=== PATIENT | male | born 1985 | race Caucasian/White ===

== ENCOUNTER → 2023-07-10 | Outpatient (REF) | payer OTHER, SELFPAY | LOC: DHSLP | PROVIDERS: ATTENDING PHYSICIAN Internal Medicine; FAMILY PHYSICIAN Family Medicine | DX: G47.30 Sleep apnea, unspecified (principal); R06.83 Snoring; R40.0 Somnolence | CPT/HCPCS: 95800 ==

== ENCOUNTER 2023-08-27 15:20 | Emergency (ER) | payer OTHER, SELFPAY ==
[2023-08-27 15:22] VITALS: BP 159/104
[2023-08-27 15:42] LABS: % Basophils 0.5 % (0-2); % Eosinophils 0.7 % (0-6); % Immature Granulocytes 0.2 % (0-0.5); % Lymphocytes 15.2 % (20.5-51.1); % Monocytes 7.4 % (1.7-9.3); Absolute Eosinophils 0.1 10^3/uL (0-0.7); Absolute Lymphocytes 1.3 10^3/uL (1.2-3.4); Absolute Monocytes 0.7 10^3/uL (0.1-0.6); Absolute Neutrophils 6.7 10^3/uL (1.4-6.5); Hematocrit 47.6 % (39.0-52.0); Hemoglobin 16.4 g/dL (13.0-18.0); Mean Corp Hgb Conc. 34.5 g/dL (33.0-37.0); Mean Corpuscular Hgb 30.1 pg (27.0-31.0); Mean Corpuscular Volume 87.5 fL (80.0-94.0); Mean Platelet Volume 9.7 fL (7.4-10.4); Nucleated Red Blood Cells % 0 % (-); Platelet Count 230 10^3/uL (130-400); Red Blood Cell Count 5.44 10^6/uL (4.70-6.10); Red Cell Dist. Width 12.6 % (11.5-14.5); White Blood Cell Count 8.8 10^3/uL (4.8-10.8)
[2023-08-27 15:57] LABS: ALT (SGPT) 24 U/L (0-50); AST (SGOT) 26 U/L (17-59); Albumin 4.9 g/dl (3.5-5.0); Alkaline Phosphatase 71 U/L (38-126); Blood Urea Nitrogen 21 mg/dl (9-20); Calcium 9.6 mg/dl (8.4-10.2); Carbon Dioxide 26 mmol/L (22-30); Chloride 102 mmol/L (98-107); Glucose 100 mg/dl (70-99); Sodium 137 mmol/L (135-145); Total Bilirubin 0.6 mg/dl (0.2-1.3); Total Protein 7.4 g/dl (6.3-8.2); eGFR > 60.00
[2023-08-27 16:07] LABS: Troponin I < 0.012 ng/ml
[2023-08-27 17:24] VITALS: BP 126/83; BP 131/92; BP 133/92; PULSE 78; PULSE 93; PULSE 99
[2023-08-27] MEDS: NSS 1000 IV (18:43)
[2023-08-27 19:15] VITALS: BP 120/77
--- NOTE | 2023-08-27 19:25 | ED.GENMED ---
History of Present Illness
General
Chief Complaint: Dizziness
Source: patient and spouse
Exam Limitations: none
Time Seen by Provider: 08/27/23 16:16
Nursing documentation reviewed up to this point in time: agreed with
Travel History
Have you had any contact with someone who has COVID-19?: No
Do you have any symptoms of coronavirus? Fever > 100 degrees, chills, cough, shortness of breath, sore throat, loss of taste or smell, muscle aches, or headache?: No
History of Present Illness
History of Present Illness:
37-year-old male with no significant chronic medical issues who presents to the emergency room accompanied by his for evaluation of dizziness. Patient reports onset of symptoms over the past week or so. He says he has had daily intermittent
episodes of what he describes more as lightheadedness�he says that he will get slight tunnel vision and feels that he might pass out. He says that this feeling does sometimes seem to be worse with positional changes. He says it seems to be worse
later in the day. He says that it makes him very anxious and so he will tend to get palpitations and anxiety around the symptoms but not preceding the symptoms. 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
coworker checked his blood pressure and it was elevated�triage note says that it was 200/100 the patient tells me that his coworker checked a manual blood pressure and that it was 150/100. He decided to come to the emergency room to be checked out.
Here in the emergency room he says he feels generally well he denies any dizziness. He has not had and does not have now any chest pain, shortness of breath. No headache. No abdominal or flank pain. He denies similar symptoms in the past. He
says he has been eating and drinking well has not had any increase in his alcohol use or caffeine use. He did see an ENT as an outpatient recently thinking that it could potentially be sinus related but ENT said unlikely to be vertiginous, no
significant abnormalities on exam per patient. He does have an appoint with a handicapped teacher in 4 days�this was previously scheduled to follow-up on a incidental finding of a bicuspid aortic valve.
Past History
Past History
ED Past Medical History: Valvular disease (Bicuspid aortic valve) and Psychiatric (Anxiety)
ED Past Surgical History: None
Social History
Tobacco: Smoker
Alcohol: Occasional
Personal:
Living: with family
Employment: Employed
Family History
Family History: Negative Early CAD, CAD or Sudden
Review of Systems
Review of Systems
All Other Systems: ROS reviewed and negative except as documented in HPI and ROS
Constitutional: Denies fever or chills
EENT: Denies sore throat or runny nose
Respiratory: Denies cough or trouble breathing
Cardiac: Reports palpitations; Denies chest pain or diaphoresis
ABD/GI: Denies abdominal pain, nausea, vomiting or diarrhea
: Denies flank pain
Musculoskeletal: Denies neck pain or back pain
Neurological: Reports dizzy; Denies headache, weakness or numbness
Phy Exam
Physical Exam
Physical Exam:
General: Awake, alert, oriented x3; no acute distress
Head: Normocephalic, atraumatic
Eyes: Conjunctiva normal, EOMI, pupils equal round and reactive to light bilaterally
Throat: Airway intact, handling secretions
Neck: Trachea midline, supple without meningismus
Lungs: Clear to auscultation bilaterally, no wheezing, rales, rhonchi
Heart: Tachycardia with regular rhythm, no murmurs, gallops, or rubs
Abd: Soft, non distended, nontender, no masses
Neuro: Cranial nerves intact 2 through 12, speech fluid with no dysarthria or aphasia, no limb ataxia, and sensory function intact in all extremities
Skin: no rash
Extremities: No edema in extremities, equal pulses in all extremities
Scores
Heart Failure Risk
Heart Failure Risk Score: Not Applicable
Heart Score for Chest Pain Patients
STEMI patient?: Not applicable
Withdrawal Assessment of Alcohol
Withdrawal Assessment Completed?: Not applicable
Course
Orders/Labs/Results
Orders:
Orders
08/27/23 15:26
EKG [Electrocardiogram (*1)] Urgent
Reason for Study: Vertigo / Dizzy
EKG- Treatment ONCE
08/27/23 15:33
CBC/With Diff [Complete Blood Count/With Diff] Urgent
CMP [Comprehensive Metabolic Panel] Urgent
Troponin I Urgent
08/27/23 16:19
CT Head W/o Iv Contrast Urgent
Comment:
Reason For Exam: dizziness, severe hypertension
08/27/23 17:15
Orthostatic VS- Treatment ONCE
08/27/23 17:45
0.9% Sodium Chloride 1000 ml [Nss] 1,000 ml IV BOLUS
Abnormal Lab Results
08/27/23
15:33
Absolute Neuts (auto) 6.7 H 10^3/uL
(1.4-6.5)
Absolute Monos (auto) 0.7 H 10^3/uL
(0.1-0.6)
Neutrophils % 76.0 H %
(42.2-75.2)
Lymphocytes % 15.2 L %
(20.5-51.1)
BUN 21 H mg/dl
(9-20)
Glucose 100 H mg/dl
(70-99)
08/27/23 15:33
08/27/23 15:33
Vital Signs
Initial and Last Documented VS:
Initial Vital Signs
Temp Pulse Resp BP Pulse Ox
36.4 C 105 18 159/104 100
08/27/23 15:22 08/27/23 15:22 08/27/23 15:22 08/27/23 15:22 08/27/23 15:22
Last Documented Vital Signs
Temp Pulse Resp BP Pulse Ox
36.4 C 78 18 120/77 99
08/27/23 15:22 08/27/23 19:15 08/27/23 19:15 08/27/23 19:15 08/27/23 19:15
MDM/Problems Addressed
Differential Diagnosis Includes:
Dysrhythmia, anemia, electrolyte derangement, orthostatic symptoms, vasovagal symptoms, valvular disease, dehydration, less likely brain mass or intracranial hemorrhage
MDM/Problems Addressed:
37-year-old male presents for evaluation of intermittent dizziness/lightheadedness over the past week or so. Associated with some hypertension today. He is tachycardic and hypertensive in triage�blood pressure normalized by my assessment. Vital
signs otherwise normal. Exam as above. His EKG shows a sinus rhythm with no ischemia, no Brug[place], no long QT, no signs of a delta wave or WPW, no signs concerning for HOCM. Plan to check labs including a CBC and a CMP. Check CT head. Monitor on
telemetry. Check orthostatics. Reassess after the above.
Orthostatic vital signs�no drop in blood pressure but did have a significant increase in heart rate from sitting to standing. Will provide some fluids and reassess. Awaiting labs and imaging.
Labs reviewed: CBC shows no significant abnormalities, no anemia. CMP within acceptable range. Troponin was sent in triage as well despite his denying any chest pain at any point in time�this was negative. CT head negative for any acute
pathology. Patient says he feels well, heart rate normalized after fluids. No clear negation for admission and he already has outpatient follow-up with cardiology scheduled which I think is a reasonable neck step in workup. Possible given
positional component and with change of heart rate from sitting to standing that his symptoms are orthostatic. Advised to drink plenty of fluids and he will follow-up with cardiology as scheduled. Regarding his high blood pressure we spoke about
antihypertensive treatment�his blood pressure normalized without intervention here hesitant to start antihypertensive out of the ED especially with patient being seen here for dizziness and potential orthostasis; advised to follow-up with his
primary doctor to have it rechecked and decide if medication is necessary. He feels comfortable with this plan. We spoke about return precautions all questions were answered.
Acute Exacerbation and/or Progression of Chronic Illness:
Acutely hypertensive possibly related to stress with his ED visit�normalized without intervention continue to monitor
Acute Exacerbation and/or Progression of Chronic Illness: HTN
*Radiology
Radiology exam reviewed: radiology read reviewed
*Pulse Oximetry
Patient hypoxic: no
*EKG
Interpreted by ED Provider?: Yes
Heart Rate: 85
Rate: normal
Rhythm: sinus and PVC's
[place]: normal axis
Interval: normal interval
QRS Pattern: normal QRS
Ischemia: no ischemia
*Critical Care Note
Total Time (30-74mins, 75-104mins- exclusive of procedures): Not Applicable
Data Reviewed
Source: patient and spouse
ED Attending Note
-
Portions of this chart may have been created with voice recognition software.� Occasional wrong word or��sound alike� substitutions may have occurred due to the inherent limitations of voice recognition software.
Discharge Plan
Departure
Patient Disposition: Home (Routine Discharge)
Date of Disposition: 08/27/23
Time of Disposition: 18:55
Patient with high blood pressure during this ER visit?: Yes
Discharge Problem:
Lightheadedness, Hypertension
Instructions: High Blood Pressure (DC), Dizziness, Nonvertigo, (DC)
Prescriptions:
No Action
No Current Medications
0
Referrals:
Renan Martinez MD [Family Provider] - Call in 1-3 days for appt
Activity Restrictions/Additional Instructions:
Thank you for visiting the Emergency Department at [facility].
1. Please schedule a follow up appointment as directed. Call first thing tomorrow morning to make an appointment.
2. If indicated, please take your medications as instructed and indicated on discharge paperwork.
3. If any of your symptoms do not improve, or persist, or become more severe within 6-12 hours, please return to the emergency department for further care.
4. Please return to the emergency department if you develop a headache, neck pain/stiffness, fever greater than 100.4F, chest pain, shortness of breath, persistent nausea, vomiting, slurred speech, difficulty walking, numbness/tingling, weakness,
signs of infection or any other symptoms that are worrisome to you.
Please call [phone] if you have any questions.
Interventions
Interventions:
*Risk Screen - Suicide Last Done: 08/27/23 15:22
*General Assessment Last Done: 08/27/23 15:22
*Neglect/Abuse Screening Last Done: 08/27/23 15:22
ED- Fall Risk Assessment Last Done: 08/27/23 19:15
*ED COVID-19 Vaccine History Last Done: 08/27/23 15:22
*Nursing Disposition Last Done: 08/27/23 19:15
ED- Cardiac Assessment Last Done: 08/27/23 17:30
ED- Neurological Assessment Last Done: 08/27/23 17:30
ED- Pulmonary Assessment Last Done: 08/27/23 17:30
ED Swallowing Screen Last Done: 08/27/23 18:08
Discharge Date and Time
Discharge Date/Time: 08/27/23 19:17
== END 2023-08-27 19:17 | disposition home or self-care (01) ==
LOC: EMR 15:20
PROVIDERS: EMERGENCY PHYSICIAN Emergency Medicine; FAMILY PHYSICIAN Family Medicine
DX: R42 Dizziness and giddiness (principal)
CPT/HCPCS: 99284; 96360; 70450; 80053; 84484; 85025; 93005

== ENCOUNTER → 2023-10-14 14:51 | Outpatient (REF) | payer OTHER, SELFPAY | LOC: DHCBS HW 14:51 | PROVIDERS: ATTENDING PHYSICIAN Internal Medicine Cardiovascular Disease; FAMILY PHYSICIAN Family Medicine | DX: R00.2 Palpitations (principal); Q23.1 Congenital insufficiency of aortic valve | CPT/HCPCS: 93306 ==

== ENCOUNTER 2025-02-22 22:52 | Emergency (ER) | payer OTHER, SELFPAY ==
[2025-02-22 22:54] VITALS: BP 140/96
[2025-02-22 23:09] LABS: Hematocrit 44.3 % (39.0-52.0); Hemoglobin 15.3 g/dL (13.0-18.0); Mean Corp Hgb Conc. 34.5 g/dL (33.0-37.0); Mean Corpuscular Volume 86.4 fL (80.0-94.0); Nucleated Red Blood Cells % 0 % (-); Platelet Count 186 10^3/uL (130-400); Red Cell Dist. Width 13.1 % (11.5-14.5)
[2025-02-22 23:32] LABS: ALT (SGPT) 20 U/L (0-50); AST (SGOT) 24 U/L (17-59); Albumin 5.0 g/dl (3.5-5.0); Alkaline Phosphatase 59 U/L (38-126); Blood Urea Nitrogen 24 mg/dl (9-20); Calcium 9.5 mg/dl (8.4-10.2); Carbon Dioxide 28 mmol/L (22-30); Chloride 104 mmol/L (98-107); Glucose 97 mg/dl (70-99); Potassium 4.4 mmol/L (3.5-5.1); Sodium 139 mmol/L (135-145); Total Protein 7.2 g/dl (6.3-8.2); eGFR > 60.00
[2025-02-22 23:33] LABS: Troponin I < 0.012 ng/ml
--- NOTE | 2025-02-23 00:30 | ED.GENMED ---
History of Present Illness
General
Chief Complaint: Heart Rate Problem
Time Seen by Provider: 02/23/25 00:30
History of Present Illness
History of Present Illness:
FOCUSED PAST MEDICAL HISTORY
- Patient has a history of bicuspid aortic valve, anxiety, Reshma syndrome
REVIEW OF OLD RECORDS
- The patient was seen here in 2010 related to palpitations and in 2023 related to high blood pressure
Note:
CHIEF COMPLAINT(S)
Palpitations and elevated heart rate.
HISTORY OF PRESENT ILLNESS
The patient is a 39-year-old male with a history of heart-related evaluations who presented with an episode of palpitations and a reported heart rate of 170 beats per minute. The episode occurred suddenly while the patient was at home and was
accompanied by a sensation of intense pressure in the chest and head. The patient used a watch to check the heart rate, which confirmed the rapid rate. An EKG taken subsequently showed normal rhythm, and no atrial fibrillation was detected. The
patient denies the use of personal blood pressure or pulse checks through physical palpation. He reports that while exercising, his heart rate can reach the 145 bpm range, but the current episode was markedly higher. The patient recently began
taking a fiber supplement but was reassured that his blood work indicated no electrolyte abnormalities. He currently feels 'freaked out,' but physically stable with a heart rate now in the 70s, normal oxygen saturation, and slightly elevated blood
pressure at 132/83 mmHg. Regular echocardiograms are performed every three years, with no mentioned abnormalities in function. No murmurs were noted upon physical examination. The differential includes sinus tachycardia and possibly supraventricular
tachycardia (SVT). The patient has experienced premature ventricular contractions (PVCs) in the past but describes this episode as 'regular,' suggesting SVT over irregular rhythms like atrial fibrillation.
PHYSICAL EXAM
- General: Well appearing in no distress
- HEENT: Moist oral mucosa
- Cardiovascular: No murmurs, normal heart rate, regular rhythm, No chest wall tenderness
- Pulmonary: No respiratory distress, breath sounds are clear and equal
- Abdomen: Soft with no peritoneal signs, no tenderness
- Neurologic: Excellent strength all extremities, no coordination deficits
- Psychiatric: Appropriate mental status, normal insight and judgement
- Extremities: Nontender, no edema, moves all extremities equally
- Skin: No rash, no lesions
- Heart: Regular rhythm, no murmurs detected.
- Lungs: Oxygen saturation at 99%.
- Vitals: Blood pressure 132/83 mmHg, heart rate in the 70s.
PLAN
The plan is to discharge the patient with instruction to monitor for similar episodes. If recurrent episodes occur, especially with heart rates significantly above baseline, attempt Valsalva maneuvers to potentially restore normal rhythm. It is
advised to secure EKG documentation during future episodes with heart rates reaching 170 bpm to aid in accurate diagnosis. If symptoms persist or worsen, the patient should return to the emergency department for further evaluation and possible
administration of IV medications like adenosine in the case of consistent SVT.
DIFFERENTIAL DIAGNOSIS
The Differential Diagnosis includes, in no particular order and is not limited to:
- Sinus tachycardia
- Supraventricular tachycardia (SVT)
- Atrial fibrillation with rapid ventricular response
- Paroxysmal supraventricular tachycardia
- Ventricular tachycardia
- Premature atrial contractions
- Premature ventricular contractions
- Anxiety
- Electrolyte imbalance
- Medication or supplement effects
SUMMARY OF ENCOUNTER
The patient was evaluated in the emergency department following a rapid heart rate episode accompanied by chest and head pressure. Objective assessments, including an EKG, indicated normal sinus rhythm following the episode. Blood work was
unremarkable, with no electrolyte imbalances. Further history taking and discussion of symptoms suggest possible SVT. The patient was educated on recognizing signs and self-monitoring for recurrences, which may require reevaluation and potential
treatment with IV medications.
DISPOSITION
The patient is to be discharged with recommendations for self-monitoring and a plan of action should symptoms recur.
MEDICAL DECISION MAKING
-Complexity of Data Reviewed:
Chronic conditions affecting care include potential arrhythmias and a history of heart evaluations. Differential diagnosis includes sinus tachycardia, SVT, and other arrhythmias.
-Data:
Category 1
Testing and documents include: Review of blood work results showing no electrolyte disturbances and a normal EKG post-episode.
Category 3
Possible future discussions on management might include cardiology referral if recurrent episodes occur requiring specific medications like adenosine for SVT.
-Risk:
Consideration of Admission/Observation: Escalation of care including admission/observation was not deemed necessary at this time due to stable examination findings, normal EKG, and reassuring post-episode vitals. Diagnosis remains speculative due to
lack of symptomatic EKG capture; however, patient is reliable for follow-up and educated on symptoms warranting return to care.
DIAGNOSIS
- Palpitations [R00.2]
- Possible SVT
EKG
- Sinus 72, normal axis, no acute ST abnormality, normal intervals
LABS
- CBC normal chemistries unremarkable, troponin less than 0.012
UPDATE
-SUMMARY OF ENCOUNTER
The patient, a 39-year-old male, was evaluated in the emergency department following an episode characterized by palpitations and an elevated heart rate of 170 bpm. The episode included a sensation of intense pressure in the chest and head. Upon
arrival, the EKG showed normal sinus rhythm, and vital signs were stable. The patient recently started taking a fiber supplement, but blood work indicated no electrolyte abnormalities. Given the episode was described as 'regular,' SVT is considered
a possible cause. The patient was educated on monitoring for similar episodes and advised on possible interventions if they recur.
DISPOSITION
Discharge.
ASSESSMENT
The patient experienced an episode of suspected supraventricular tachycardia (SVT).
PLAN
The patient is instructed to self-monitor and employ Valsalva maneuvers should similar episodes with rapid heart rate recur. He is advised to secure EKG documentation during future episodes. If symptoms persist or worsen, the patient is to return to
the emergency department for further evaluation and possible treatment with IV medications like adenosine for SVT.
INDEPENDENT REVIEW OF LABS AND INTERPRETATION OF TESTS
My independent review of the EKG indicated a normal sinus rhythm post-episode. My independent interpretation aligns with the findings of no acute abnormalities.
PATIENT EDUCATION AND COUNSELING
The patient was advised on the signs of SVT and counseled on monitoring triggers that may precipitate further episodes. Instructions were provided on using Valsalva maneuvers to potentially restore a normal heart rhythm during episodes of rapid
heart rate.
FOLLOW-UP INSTRUCTIONS
The patient should seek immediate medical attention if episodes of elevated heart rate reoccur or if any new concerning symptoms arise.
MEDICAL DECISION MAKING
-Complexity of Data Reviewed: Chronic conditions affecting care include potential arrhythmias and a history of heart evaluations. Differential diagnosis includes sinus tachycardia, SVT, atrial fibrillation, and other arrhythmias.
-Data:
Category 1
Tests and documents: Reviewed blood work results showing no electrolyte disturbances. Normal EKG reviewed post-episode.
Category 3
Consideration of Admission/Observation: Escalation of care including admission/observation was considered given the complexity and risk of the patients presenting complaint. However, ultimately the patient was deemed safe for outpatient management
with close follow-up due to stable examination and normal EKG findings.
Past History
Past History
ED Past Medical History: Valvular disease (Bicuspid aortic valve) and Psychiatric (Anxiety)
ED Past Surgical History: None
Social History
Tobacco: Smoker
Alcohol: Occasional
Personal:
Living: with family
Employment: Employed
Family History
Family History: Negative Early CAD, CAD or Sudden
Phy Exam
Physical Exam
Physical Exam:
See HPI
Course
Orders/Labs/Results
Orders:
Orders
02/22/25 22:57
Electrocardiogram (*1) Urgent
Reason for Study: Palpitations
EKG- Treatment ONCE
02/22/25 23:04
Complete Blood Count/With Diff Urgent
Comprehensive Metabolic Panel Urgent
Troponin I Urgent
Abnormal Lab Results
02/22/25
23:04
Absolute Monos (auto) 0.8 H 10^3/uL
(0.1-0.6)
Monocytes % 10.9 H %
(1.7-9.3)
BUN 24 H mg/dl
(9-20)
02/22/25 23:04
02/22/25 23:04
Vital Signs
Initial and Last Documented VS:
Initial Vital Signs
Temp Pulse Resp BP Pulse Ox
36.7 C 78 19 140/96 100
02/22/25 22:54 02/22/25 22:54 02/22/25 22:54 02/22/25 22:54 02/22/25 22:54
Last Documented Vital Signs
Temp Pulse Resp BP Pulse Ox
36.7 C 83 19 132/83 97
02/22/25 22:54 02/23/25 00:32 02/23/25 00:32 02/23/25 00:32 02/23/25 00:32
*Pulse Oximetry
SaO2: 100
Oxygen Mode of Delivery: Room air
Patient hypoxic: no
*Critical Care Note
Total Time (30-74mins, 75-104mins- exclusive of procedures): Not Applicable
ED Attending Note
-
Portions of this chart may have been created with voice recognition software.� Occasional wrong word or��sound alike� substitutions may have occurred due to the inherent limitations of voice recognition software.
Discharge Plan
Departure
Patient Disposition: Home (Routine Discharge)
Date of Disposition: 02/23/25
Time of Disposition: 00:41
Patient with high blood pressure during this ER visit?: Yes
Discharge Problem:
Palpitations
Instructions: Palpitations (DC), BLOOD PRESSURE
Prescriptions:
No Action
No Current Medications
0
Activity Restrictions/Additional Instructions:
The cause of your symptoms is unclear. It is possible that you may have had an episode of SVT earlier (supraventricular tachycardia). Your complete blood cell count, chemistry levels, and troponin test are all normal. EKG is normal. 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 Return here if worse or other concerns.
Interventions
Interventions:
*Risk Screen - Suicide Last Done: 02/22/25 22:56
*General Assessment Last Done: 02/22/25 22:56
*Neglect/Abuse Screening Last Done: 02/22/25 22:56
Discharge Date and Time
Print Language: [place]ET[place]ESE
[2025-02-23 00:32] VITALS: BP 132/83
[2025-02-23 00:45] VITALS: BMI 32.3
== END 2025-02-23 00:58 | disposition home or self-care (01) ==
LOC: EMR 22:52
PROVIDERS: Student in an Organized Health Care Education/Training Program; EMERGENCY PHYSICIAN Emergency Medicine; FAMILY PHYSICIAN Family Medicine
DX: R00.2 Palpitations (principal); F17.200 Nicotine dependence, unspecified, uncomplicated
CPT/HCPCS: 99284; 80053; 84484; 85025; 93005

== ENCOUNTER 2025-06-20 00:05 | Emergency (ER) | payer OTHER, SELFPAY ==
[2025-06-20 00:12] VITALS: BP 140/100
[2025-06-20 00:40] VITALS: BMI 31.0
--- NOTE | 2025-06-20 00:43 | EDRN ---
Pt says this is his 4th episode of tachycardia since February. Pt sleeping, woke at 2345 feeling disoriented and felt his HR was rapid. Pt unable to catch his breath says his watch read 150's for HR. Same happened [place] mal but this episode
last longest, approximately little over 5 minutes. Pt says past 2 episodes have been after large meals. Pt did Valsalva maneuver and splashed cold water in face as instructed. Watch said 'no afib.' Pt has nausea and headache now. No vomiting,
fever/chills/cough. Pt had nausea and headache on mal with episode also. Pt had a holter monitor that showed tachycardia nothing above 120 and nothing that he felt. 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 Pt adds he has persistent
dizziness x 2 years and no one knows what it is. No medications taken prior to arrival in ED.
[2025-06-20 00:47] VITALS: BP 118/80
--- NOTE | 2025-06-20 00:53 | ED.GENMED ---
History of Present Illness
General
Chief Complaint: Heart Rate Problem
Source: patient
Exam Limitations: none
Time Seen by Provider: 06/20/25 00:34
Nursing documentation reviewed up to this point in time: agreed with
History of Present Illness
History of Present Illness:
Patient is a 39-year-old male who presents to the emergency department after brief episode of palpitations. Patient states he was woken from sleep with a sensation that his heart was racing. Patient states that he felt very anxious the time and
started hyperventilating. His heart rate apparently was in the 140s based on his Apple watch data. He reports that the symptoms persisted for about 5 minutes and then resolved spontaneously. He denies any associated shortness of breath or
exertional chest pain. By time of my assessment, his symptoms have completely resolved however he states that he feels 'shaken up'.
Patient has had 3 similar episodes over the course of the past 3 months. He was seen by a supervisor harvesting where he had a 1 week Holter monitor formed which did not detect any arrhythmia. He is scheduled for a follow-up with his supervisor harvesting,
Angeli next week. Patient denies any recent fever or chills. He states that he is overall been feeling well and has not been experiencing any exertional dyspnea, chest pain, or fatigue with exercise.
Patient does report a history of bicuspid aortic valve however has had a recent echocardiogram which revealed that this is stable.
Past History
Past History
ED Past Medical History: Valvular disease (Bicuspid aortic valve) and Psychiatric (Anxiety)
ED Past Surgical History: None
Social History
Tobacco: Smoker
Alcohol: Occasional
Personal:
Living: with family
Employment: Employed
Family History
Family History: Negative Early CAD, CAD or Sudden
Review of Systems
Review of Systems
Allergies reviewed?: Yes
All Other Systems: ROS reviewed and negative except as documented in HPI and ROS
Phy Exam
Physical Exam
Physical Exam:
Vitals: Hypertensive on arrival, otherwise vital signs stable. Afebrile
General: Patient is well appearing, no acute distress. Nontoxic appearing
Skin: Warm and dry, no rashes or lesions
Head: Normocephalic, atraumatic
Eyes: Sclera nonicteric.
Throat: Protecting airway
Neck: Normal ROM, no cervical spine tenderness, no meningismus
Cardiac: Regular rate and rhythm, no murmurs.
Pulm: Normal respiratory effort. Lungs clear bilaterally
Abdomen: No abdominal tenderness.
Extremities: No evidence of cyanosis or edema. Strength 5/5 in bilateral upper and lower extremities
Neuro: AAOx3. Grossly intact.
Psychiatric: Normal affect.
Course
Orders/Labs/Results
Orders:
Orders
06/20/25 00:07
EKG [Electrocardiogram (*1)] Urgent
Reason for Study: Bradycardia / Tachycardia
EKG- Treatment ONCE
06/20/25 01:47
Complete Blood Count/With Diff Urgent
Comprehensive Metabolic Panel Urgent
Free T4 Urgent
Magnesium Urgent
TSH Reflex To Free T4 Urgent
Troponin I Urgent
Abnormal Lab Results
06/20/25
01:47
Absolute Neuts (auto) 7.5 H 10^3/uL
(1.4-6.5)
Absolute Monos (auto) 0.8 H 10^3/uL
(0.1-0.6)
Lymphocytes % 14.9 L %
(20.5-51.1)
BUN 22 H mg/dl
(9-20)
Glucose 109 H mg/dl
(70-99)
TSH (Reflex) 5.60 H uIU/ml
(0.47-4.68)
Free T4 0.65 L ng/dl
(0.78-2.19)
06/20/25 01:47
06/20/25 01:47
Vital Signs
Blood pressure: 113/74
Initial and Last Documented VS:
Initial Vital Signs
Temp Pulse Resp BP Pulse Ox
97.8 F 95 22 140/100 100
06/20/25 00:12 06/20/25 00:12 06/20/25 00:12 06/20/25 00:12 06/20/25 00:12
Last Documented Vital Signs
Temp Pulse Resp BP Pulse Ox
97.8 F 88 21 113/74 95
06/20/25 00:12 06/20/25 03:08 06/20/25 03:08 06/20/25 03:10 06/20/25 03:08
MDM/Problems Addressed
Differential Diagnosis Includes:
Not limited to: Cardiac arrhythmia, acute dehydration/electrolyte abnormality, hyperthyroidism, etc.
MDM/Problems Addressed:
39-year-old healthy male with palpitations. Occurring intermittently over the past few months�tonight woke him from sleep. Not exertional in nature. No associated chest pain or shortness of breath. No episodes of syncope. Seen by cardiology
with negative Holter monitor back in February. Asymptomatic by arrival to ED.
Patient has stable vital signs. On exam, he appears in no distress. Cardio/pulmonary assessment is unremarkable. On cardiac monitoring�he appears to be in a normal sinus rhythm without any abnormal beats or notable arrhythmia. Will check basic
labs, electrolytes, troponin. 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
Update: CBC and chemistry unremarkable. He was found to have mild hyperthyroidism on lab work today�unclear if this may be related. He apparently recently saw an parole hearing officer and had normal lab work less than 1 week ago. He has remained
asymptomatic in the ED and is sleeping comfortably. No evidence of arrhythmia. It is possible that he was in SVT prior to arrival to the emergency department. Ultimately�he will require further evaluation with cardiology outpatient for possible
repeat Holter monitor however feel stable for discharge from emergency department today.
Given recent normal lab work with endocrinology�will hold thyroid replacement and Emergency Department and advise follow-up with endocrine this week to discuss abnormal thyroid studies today. Patient comfortable with this plan.
Chronic conditions affecting care:
N/A
Acute Exacerbation and/or Progression of Chronic Illness:
N/A
*Pulse Oximetry
SaO2: 100
Oxygen Mode of Delivery: Room air
Patient hypoxic: no
*EKG
Interpreted by ED Provider?: Yes
EKG Intrepretation Date: 06/20/25
Interpretation: abnormal
Comparison EKG: no changes
Heart Rate: 89
Rate: normal
Rhythm: sinus
[place]: normal axis
Interval: normal QT interval
QRS Pattern: low voltage
Ischemia: no ischemia
*Net Making Supervisor Interpretation
Rate: normal
Interpretation: normal
Heart Rate: 86
Rhythm: sinus
*Critical Care Note
Total Time (30-74mins, 75-104mins- exclusive of procedures): Not Applicable
Data Reviewed
Review of Other/Old Records Reveals: Discharge Summary (Reviewed ED discharge summary from 02/23/2025 after visit for palpitations )
ED Attending Note
-
Portions of this chart may have been created with voice recognition software.� Occasional wrong word or��sound alike� substitutions may have occurred due to the inherent limitations of voice recognition software.
Discharge Plan
Departure
Patient Disposition: Home (Routine Discharge)
Date of Disposition: 06/20/25
Time of Disposition: 03:13
Patient with high blood pressure during this ER visit?: No
Condition: Good
Discharge Problem:
Palpitations
Instructions: Palpitations (DC)
Prescriptions:
No Action
sertraline [Zoloft] 25 mg Tablet
25 mg PO DAILY
fluticasone propionate [Flonase] 50 mcg/actuation [place],Suspension
1 spray INTRANASAL DAILY
cholecalciferol (vitamin D3) [Vitamin D3] 50 mcg (2,000 unit) Tablet
50 mcg PO DAILY
Referrals:
Anna Borrero DO [Active, Cardiology] - Next open appointment
Renan Martinez MD [Family Provider, Family Practice]
Activity Restrictions/Additional Instructions:
RETURN TO THE EMERGENCY DEPARTMENT WITH ANY CHEST PAIN, SHORTNESS OF BREATH/DIFFICULTY BREATHING, PERSISTENTLY ELEVATED HEART RATE, LIGHTHEADEDNESS/DIZZINESS OR EPISODES OF FAINTING, WORSENING CURRENT SYMPTOMS, OR ANY OTHER CONCERNS
- As discussed -your thyroid level was abnormal today in the emergency department. Please call your parole hearing officer on Saturday to discuss results and consider either repeat lab work/initiating thyroid replacement. You remained in normal sinus
rhythm on the welder/installer while in the emergency department.
- Please stay well-hydrated and take all medications as prescribed.
- Please contact your supervisor harvesting on Saturday morning for prompt outpatient follow-up. You may require additional Holter monitoring
Monitor your symptoms closely and return to the emergency department with any acute worsening/new symptoms or any other concerns
Interventions
Interventions:
*General Assessment Last Done: 06/20/25 00:12
*Neglect/Abuse Screening Last Done: 06/20/25 00:12
*ED COVID-19 Vaccine History Last Done: 06/20/25 00:43
*ED Influenza Vaccine History Last Done: 06/20/25 00:43
[facility] Risk Assessment Tool Last Done: 06/20/25 00:40
*Risk Screen - Suicide (C-SSRS) Last Done: 06/20/25 00:12
*Nursing Disposition Last Done: 06/20/25 03:30
ED- Cardiac Assessment Last Done: 06/20/25 00:51
ED- Pulmonary Assessment Last Done: 06/20/25 00:51
Discharge Date and Time
Discharge Date/Time: 06/20/25 03:30
Print Language: TUNISIAN
[2025-06-20 01:00] VITALS: BP 122/78
[2025-06-20 01:57] LABS: Hematocrit 42.0 % (39.0-52.0); Hemoglobin 14.8 g/dL (13.0-18.0); Mean Corp Hgb Conc. 35.2 g/dL (33.0-37.0); Mean Corpuscular Volume 86.1 fL (80.0-94.0); Nucleated Red Blood Cells % 0 % (-); Platelet Count 199 10^3/uL (130-400); Red Cell Dist. Width 12.8 % (11.5-14.5)
[2025-06-20 02:12] LABS: ALT (SGPT) 23 U/L (0-50); AST (SGOT) 25 U/L (17-59); Albumin 4.3 g/dl (3.5-5.0); Alkaline Phosphatase 91 U/L (38-126); Blood Urea Nitrogen 22 mg/dl (9-20); Calcium 8.9 mg/dl (8.4-10.2); Carbon Dioxide 27 mmol/L (22-30); Chloride 101 mmol/L (98-107); Estimated Creatinine Clearance 114 ml/min; Glucose 109 mg/dl (70-99); Magnesium 2.1 mg/dl (1.6-2.3); Potassium 3.7 mmol/L (3.5-5.1); Sodium 135 mmol/L (135-145); Total Protein 6.4 g/dl (6.3-8.2); eGFR > 60.00
[2025-06-20 02:24] LABS: Troponin I < 0.012 ng/ml
[2025-06-20 03:00] VITALS: BP 97/56
[2025-06-20 03:08] VITALS: BP 113/74
--- NOTE | 2025-06-20 03:21 | EDRN ---
Pt given d/c instructions, waiting for Malia ANDERSEN to discuss thyroid function test results with pt.
== END 2025-06-20 03:30 | disposition home or self-care (01) ==
LOC: EMR 00:05
PROVIDERS: Physician Assistant; EMERGENCY PHYSICIAN Emergency Medicine; FAMILY PHYSICIAN Family Medicine
DX: R00.2 Palpitations (principal); E05.90 Thyrotoxicosis, unspecified without thyrotoxic crisis or storm; F41.9 Anxiety disorder, unspecified; F17.200 Nicotine dependence, unspecified, uncomplicated
CPT/HCPCS: 99284; 80053; 83735; 84439; 84443; 84484; 85025; 93005